=== PATIENT | female | born 1945 | race Caucasian/White ===

== ENCOUNTER 2017-11-29 13:00 | Outpatient (RCR) | payer OTHER | END 2017-12-15 | disposition home or self-care (01) | LOC: PTY 13:00 | DX: M75.02 Adhesive capsulitis of left shoulder (principal) | CPT/HCPCS: 97110; 97112; 97140; 97162; G0283 ==

== ENCOUNTER 2017-12-29 16:00 | Outpatient (RCR) | payer OTHER | END 2018-01-12 | disposition home or self-care (01) | LOC: PTY 16:00 | DX: M75.02 Adhesive capsulitis of left shoulder (principal) | CPT/HCPCS: 97110; G0283 ==